=== PATIENT | female | born 1995 | race Caucasian/White ===

== ENCOUNTER 2023-04-18 09:39 | Inpatient (IN) | payer MEDICAID, OTHER ==
[~2023-04-18] VITALS: Ht 170.2 cm; Wt 99.7 kg
[2023-04-18 10:23] LABS: HEMATOCRIT 45.2 % (36.0-47.0); HEMOGLOBIN 15.4 g/dl (12.0-15.5); MEAN CORPUSCULAR HEMOGLOBIN 31.2 pg (27.0-33.0); MEAN CORPUSCULAR HGB CONC 34.1 g/dl (32.0-36.5); MEAN CORPUSCULAR VOLUME 91.5 fl (80.0-96.0); PLATELET COUNT, AUTOMATED 351 10^3/uL (150-450); RED BLOOD COUNT 4.94 10^6/uL (4.00-5.40); WHITE BLOOD COUNT 19.4 10^3/uL (4.0-10.0)
[2023-04-18] MEDS ORDERED: MED REC IN PROGRESS XX SCH (10:45)
[2023-04-18 10:47] LABS: AMPHETAMINES LEVEL URINE NEGATIVE (NEGATIVE); BARBITURATES URINE NEGATIVE (NEGATIVE); BENZODIAZEPINES URINE NEGATIVE (NEGATIVE); COCAINE METABOLITE URINE NEGATIVE (NEGATIVE); METHADONE URINE NEGATIVE (NEGATIVE); OPIATES URINE NEGATIVE (NEGATIVE); PHENCYCLIDINE URINE NEGATIVE (NEGATIVE)
[2023-04-18 10:48] LABS: CANNABINOIDS URINE POSITIVE (NEGATIVE); ETHYL ALCOHOL (ETHANOL) < 0.003 % (0.000-0.010)
[2023-04-18 10:49] LABS: HCG, SERUM QUALITATIVE NEGATIVE (NEGATIVE); SALICYLATE LEVEL < 3.0 MG/DL (<30)
[2023-04-18 10:50] LABS: ALBUMIN 4.8 G/DL (3.2-5.2); ALKALINE PHOSPHATASE 93 U/L (46-116); ALT/SGPT 30 U/L (7.0-40); AST/SGOT 38 U/L (<34); BILIRUBIN,DIRECT 0.5 MG/DL (<0.4); BILIRUBIN,TOTAL 1.4 MG/DL (0.3-1.2); BLOOD UREA NITROGEN 12 MG/DL (9-23); CALCIUM LEVEL 9.5 MG/DL (8.5-10.1); CARBON DIOXIDE LEVEL 25 MMOL/L (20-31); CHLORIDE LEVEL 106 MMOL/L (98-107); GLOMERULAR FILTRATION RATE > 60.0 (>60); GLUCOSE, FASTING 197 MG/DL (60-100); SODIUM LEVEL 139 MMOL/L (136-145); TOTAL PROTEIN 8.2 G/DL (5.7-8.2)
[2023-04-18 10:52] LABS: THYROID STIMULATING HORMONE 0.882 uIU/ML (0.55-4.78)
[2023-04-18] MEDS ORDERED: HOME MED LIST COMPLETE! XX SCH (11:20)
[2023-04-18 12:21] LABS: HEMOGLOBIN A1c 5.7 % (4.0-6.0)
[2023-04-18 14:10] LABS: HEPATITIS B CORE ANTIBODY IGM NEGATIVE (NEGATIVE)
[2023-04-18] MEDS ORDERED: diphenhydrAMINE 25MG CAP PO PRN (14:10)
[2023-04-18] MEDS ORDERED: ACETAMINOPHEN TAB 650MG DOSE (2X325MG) PO PRN (14:10)
[2023-04-18] MEDS ORDERED: MAALOX 30 ML SUSP *UDC PO PRN (14:10)
[2023-04-18] MEDS ORDERED: traZODone 50 MG TAB PO PRN (14:10)
[2023-04-18] MEDS ORDERED: MOM 30ML SUSPENSION UDC PO PRN (14:10)
[2023-04-18 14:11] LABS: HEPATITIS C VIRUS ABY INDEX 0.06 INDEX (<0.8)
[2023-04-18] MEDS: IBUPROFEN 400MG TAB PO PRN (18:56)
[2023-04-19 02:40] VITALS: BP 120/72; TEMP 97.8; O2SAT 97
[2023-04-19 06:26] VITALS: BP 122/68; TEMP 98; O2SAT 99
[2023-04-19] MEDS: SERTRALINE HCL 50 MG TAB PO SCH (09:00)
[2023-04-19] MEDS: LIDOCAINE 5% (LIDODERM) PATCH TD SCH (09:00)
[2023-04-19 09:56] LABS: MEAN CORPUSCULAR HEMOGLOBIN 31.3 pg (27.0-33.0); MEAN CORPUSCULAR HGB CONC 34.1 g/dl (32.0-36.5); MEAN CORPUSCULAR VOLUME 91.9 fl (80.0-96.0); PLATELET COUNT, AUTOMATED 282 10^3/uL (150-450); RED BLOOD COUNT 4.79 10^6/uL (4.00-5.40); WHITE BLOOD COUNT 9.1 10^3/uL (4.0-10.0)
[2023-04-19 10:22] LABS: ALBUMIN 4.2 G/DL (3.2-5.2); BILIRUBIN,DIRECT 0.7 MG/DL (<0.4); BILIRUBIN,TOTAL 1.6 MG/DL (0.3-1.2); TOTAL PROTEIN 7.2 G/DL (5.7-8.2)
[2023-04-19] MEDS: IBUPROFEN 400MG TAB PO PRN (10:47)
[2023-04-20 06:33] VITALS: BP 109/63; TEMP 97.4; O2SAT 97
[2023-04-20] MEDS: SERTRALINE HCL 50 MG TAB PO SCH (09:00)
[2023-04-20] MEDS: LIDOCAINE 5% (LIDODERM) PATCH TD SCH (09:00)
[2023-04-21 06:33] VITALS: BP 137/80; TEMP 98.3; O2SAT 100
[2023-04-21] MEDS: LIDOCAINE 5% (LIDODERM) PATCH TD SCH (09:00)
[2023-04-21] MEDS: SERTRALINE HCL 50 MG TAB PO SCH (09:00)
[2023-04-21] MEDS ORDERED: OLANZapine 10 MG TAB PO STA (12:26)
[2023-04-21] MEDS ORDERED: OLANZapine INTRAMUSCULAR 10MG VIAL IM STA (12:28)
[2023-04-21] MEDS: OLANZapine 5 MG TAB PO SCH (21:00)
[2023-04-22 06:24] VITALS: BP 103/58; TEMP 98; O2SAT 100
[2023-04-22] MEDS: LIDOCAINE 5% (LIDODERM) PATCH TD SCH (09:00)
[2023-04-22] MEDS ORDERED: OLANZapine ORAL DISINTEGRATING TAB 5MG PO PRN (17:20)
[2023-04-22] MEDS: OLANZapine 5 MG TAB PO SCH (20:56)
[2023-04-23 06:29] VITALS: BP 99/56; TEMP 98.4; O2SAT 98
[2023-04-23] MEDS: LIDOCAINE 5% (LIDODERM) PATCH TD SCH (09:00)
[2023-04-23 18:58] VITALS: BP 114/70; TEMP 98.6
[2023-04-23] MEDS: OLANZapine 5 MG TAB PO SCH (20:08)
[2023-04-24 06:28] VITALS: BP 118/65; TEMP 98.6
[2023-04-24] MEDS: LIDOCAINE 5% (LIDODERM) PATCH TD SCH (09:00)
== END 2023-04-24 15:19 | disposition home or self-care (01) | DRG 753 ==
LOC: M ED 09:39 → M ED INP 14:10 → M PSY 04-19 00:11 → M ED INP 04-19 00:11 → M PSY 04-19 01:39
PROVIDERS: ADMIT Student in an Organized Health Care Education/Training Program; ATTEND Student in an Organized Health Care Education/Training Program
DX: F39 Unspecified mood [affective] disorder (principal); R45.851 Suicidal ideations; G47.00 Insomnia, unspecified; F19.90 Other psychoactive substance use, unspecified, uncomplicated; F41.9 Anxiety disorder, unspecified; F17.210 Nicotine dependence, cigarettes, uncomplicated; F17.290 Nicotine dependence, other tobacco product, uncomplicated; F15.90 Other stimulant use, unspecified, uncomplicated; M94.0 Chondrocostal junction syndrome [Tietze]; Z20.822 Contact with and (suspected) exposure to COVID-19; Z91.51 Personal history of suicidal behavior; Z78.1 Physical restraint status; Z63.0 Problems in relationship with spouse or partner